=== PATIENT | male | born 2000 | race Two or more races ===

== ENCOUNTER 2024-12-23 14:49 | Emergency (ER) | payer MEDICAID, SELFPAY ==
[2024-12-23 14:50] VITALS: BMI 35.2
[2024-12-23 14:57] VITALS: BP 141/89; PULSE 91; RESP 18; TEMP 36.9; O2SAT 95
--- NOTE | 2024-12-23 15:01 | XR_ITS ---
Examination: Abdomen sonogram, Limited Date and time of exam: December 23, 2024 1516 hours INDICATIONS: Epigastric pain and nausea beginning 2 days ago Technique: Real-time villarreal scale transabdominal sonographic images of the upper abdomen obtained. Findings: Contracted gallbladder, gallbladder wall thickening 0.58 cm Common bile duct enlarged 0.80 cm no definite stones Pancreatic head 2.2 cm Liver 14.9 cm no focal liver lesions Patent IVC Normal hepatopedal portal venous flow IMPRESSION: Recommend repeating the gallbladder portion of the study with fasting Abnormally enlarged common bile duct 0.80 cm, if biliary colic is a clinical consideration recommend MRCP follow-up
--- NOTE | 2024-12-23 15:02 | PD.EDRME ---
Rapid Medical Screening Exam [facility] Arrival date/time: 12/23/24 14:49 24-year-old male with no known medical history presents to the emergency room with a chief complaint of 7 out of 10 epigastric pain that radiates to his left upper quadrant, jaundice, x 3 days. Patient was sent over by his primary care provider I have greeted and performed a focused initial assessment of this patient. A comprehensive ED assessment and evaluation of the patient, analysis of all test results, and completion of the medical decision making process will be conducted by additional ED providers. Chief Complaint: Abdominal Pain Vital signs: Vital Signs Temperature 98.5 F 12/23/24 14:57 Pulse Rate 91 12/23/24 14:57 Respiratory Rate 18 12/23/24 14:57 Blood Pressure 141/89 H 12/23/24 14:57 Pulse Oximetry (%) 95 12/23/24 14:57 Oxygen Delivery Method Room Air 12/23/24 14:57 Vital signs reviewed by provider: Yes
[2024-12-23 15:17] LABS: Basophils % (Auto) 0 % (0-2.5); Eosinophils # (Auto) 0.1 Thou/mm3 (0.0-0.5); Eosinophils % (Auto) 2 % (0-10); Hematocrit 48.7 % (41.0-53.0); Hemoglobin 16.9 g/dL (13.5-16.0); Immature Granulocytes % (Auto) 0 % (0-0); Immature Granulocytes Auto 0.01 Thou/mm3 (0.00-0.00); Lymphocytes % (Auto) 29 % (10-50); Mean Corpuscular HGB Conc 34.7 g/dl (31.0-37.0); Mean Corpuscular Hemoglobin 28.9 pg (25.0-35.0); Mean Corpuscular Volume 83 fL (80-100); Monocytes # (Auto) 0.4 Thou/mm3 (0.0-0.8); Monocytes % (Auto) 6 % (0-12); Neutrophils # (Auto) 4.3 Thou/mm3 (1.8-7.7); Neutrophils % (Auto) 63 % (37-80); Nucleated Red Blood Cell % 0 /100 WBC (0); Platelet Count 327 Thou/mm3 (140-440); Red Blood Count 5.85 Miln/mm3 (4.50-5.90); White Blood Count 6.9 Thou/mm3 (3.8-10.6)
[2024-12-23 15:38] LABS: Alanine Aminotransferase 465 U/L (10-49); Albumin, Serum 4.8 gm/dL (3.5-5.0); Albumin/Globulin Ratio 1.4 (1.2-2.2); Alkaline Phosphatase 264 U/L (46-116); Anion Gap 10 (7-16); Aspartate Amino Transferase 174 U/L (0-34); BUN/Creatinine Ratio 12 Ratio (12-20); Bilirubin,Total 7.7 mg/dL (0.3-1.2); Blood Urea Nitrogen 11 mg/dL (9-23); Calcium 10.2 mg/dL (8.3-10.6); Calcium (Corrected) 10.2 mg/dL (8.5-10.1); Carbon Dioxide 24.2 mMol/L (20.0-31.0); Chloride 104 mMol/L (98-107); Creatinine (Component) 0.9 mg/dL (0.6-1.3); Estimated Creatinine Clearance 150.9 mL/min (>60); Globulin 3.4 gm/dL (2.3-3.5); Glucose 99 mg/dL (74-106); Lipase 32 U/L (12-53); Osmolality,Calculated 275 (275-295); Potassium 3.6 mMol/L (3.4-5.1); Sodium 138 mMol/L (136-145); Total Protein 8.2 gm/dL (5.7-8.2); eGFR > 60 See Note
[2024-12-23 16:29] LABS: Collection Type, Urine Clean Catch
[2024-12-23 16:58] LABS: Amorphous Crystals,Urine Present (Absent); Bacteria,Urine Rare; Bilirubin,Urine 2+ (Negative); Blood,Urine Negative (Negative); Color,Urine Drk-Yellow (Lt Yel-Yel); Glucose, Urine Negative (Negative); Ketones,Urine Negative (Negative); Leukocyte Esterase,Urine Negative (Negative); Nitrite,Urine Negative (Negative); Protein,Urine Trace (Neg - Trace); RBC,Urine 3 /hpf (0-3); Specific Gravity,Urine 1.021 (1.001-1.035); Squamous Epithelial Cell,Urine 1 /hpf (0-5); WBC,Urine 1 /hpf (0-5)
[2024-12-23 17:19] LABS: Clarity,Urine Hazy (Clear/Hazy)
[2024-12-23 19:42] VITALS: BP 124/84; PULSE 80; RESP 18; TEMP 37.1; O2SAT 98
--- NOTE | 2024-12-24 | XR_ITS ---
MRI abdomen, without contrast. MRCP Date and time of exam: December 24, 2024 1010 hours INDICATIONS: Epigastric pain and jaundice beginning 3 days ago, elevated bilirubin on laboratory examination today, enlarged common bile duct on gallbladder sonogram December 23, 2024 Technique: Multiple axial and coronal images of the abdomen have been obtained with the Siemens 1.5T MRI scanner. Images obtained included T1 weighted transverse images, T2-weighted transverse images, T2-weighted transverse images fat-suppressed, T2 weighted haste fat suppressed transverse images, T1 weighted images, in and out of phase images, T2-weighted coronal images, breath hold, T2 weighted haze coronal images as well as T2 weighted coronal thick slab images, MRCP. 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
--- NOTE | 2024-12-24 04:34 | PD.EDABDPN ---
ED Abdominal Pain RME/HPI General Chief Complaint: Abdominal Pain Stated complaint: ABD PAIN, SENT BY [facility] Time seen by provider: 12/23/24 19:56 Arrival date/time: 12/23/24 14:49 Source: patient Mode of arrival: ambulatory Limitations: no limitations RME / HPI RME / HPI narrative: 12/23/24 14:49 24-year-old male with no known medical history presents to the emergency room with a chief complaint of 7 out of 10 epigastric pain that radiates to his left upper quadrant, jaundice, x 3 days. Patient was sent over by his primary care provider. I have greeted and performed a focused initial assessment of this patient. A comprehensive ED assessment and evaluation of the patient, analysis of all test results, and completion of the medical decision making process will be conducted by additional ED providers. Dr. Ruiz?s Main ED Evaluation: I saw this patient at 0435, approximately 14 hours after checking in. 24-year-old male with no known past medical history presents as a walk-in with concerns of bilateral upper quadrant abdominal pain, which began on December 21, 2024. Review of the record, patient was seen at this facility's urgent care in [place] who advised the patient to seek emergent evaluation. Per their note, the onset of pain was preceded by diffuse pruritus, scleral icterus, and dark-colored urine. He self-administered 1 dose of Tylenol with minimal relief. Since symptom onset, he reports persistent abdominal discomfort and worsening nausea. He denies alcohol use, recent viral illness, medication use, or illicit substance exposure. Review of systems is negative for fever, chills, myalgias, vomiting, dizziness, or lethargy. No additional concerns were reported. Related Data Home Medications ?Medication ?Instructions ?Recorded ?Confirmed No Known Home Medications 12/23/24 12/23/24 Allergies Allergy/AdvReac Type Severity Reaction Status Date / Time No Known Allergies Allergy Verified 12/23/24 14:53 Review of Systems Review of Systems Systems Reviewed: All systems reviewed, normal except as documented Past Medical History Social History SMOKING STATUS: Current every day smoker SECOND HAND EXPOSURE: No ED Exam General Limitations: Present no limitations General appearance: Present alert and in no apparent distress Head Head exam: Present atraumatic Eye Eye exam: Present normal appearance, PERRL and EOMI ENT ENT exam: Present normal exam, normal oropharynx and mucous membranes moist Neck Neck exam: Present normal inspection, full ROM and trachea midline Chest Chest inspection: Present normal inspection and symmetric chest wall rise Respiratory Respiratory exam: Present normal lung sounds bilaterally Cardiovascular Cardiovascular exam: Present regular rate, normal rhythm and normal heart sounds Abdominal Exam Abdominal exam: Present soft, tenderness and normal bowel sounds Abdominal tenderness: Present RUQ Extremities Exam Extremities exam: Present normal inspection and full ROM Back Exam Back exam: Present normal inspection and full ROM Neurological Exam Neurological exam: Present alert, oriented X3 and CN II-XII intact Psychiatric Psychiatric exam: Present normal affect and normal mood Skin Skin exam: Present warm, dry, intact and normal color Course Quality Measures none Orders Category Date Time Status MRI Screening NOW Care 12/24/24 01:53 Completed MR MRCP Stat Exams 12/24/24 Completed US gall bladder Stat Exams 12/23/24 15:01 Completed CBC Stat Lab 12/23/24 15:07 Completed CMP [Comprehensive Metabolic Panel] Stat Lab 12/23/24 15:07 Completed Lipase Stat Lab 12/23/24 15:07 Completed UA [Urinalysis] Stat Lab 12/23/24 16:20 Completed Urine Culture Stat Lab 12/23/24 16:20 Received Vital Signs Vital signs: Vital Signs Temperature 98.5 F 12/23/24 14:57 Pulse Rate 91 12/23/24 14:57 Respiratory Rate 18 12/23/24 14:57 Blood Pressure 141/89 H 12/23/24 14:57 Pulse Oximetry (%) 95 12/23/24 14:57 Oxygen Delivery Method Room Air 12/23/24 14:57 Abdominal Pain MDM MDM Narrative MDM Narrative:: 0600 Care signed out to oncoming dayshift provider. Past medical, surgical, social and family history reviewed. Vitals and home medications reviewed. Results and treatment plan discussed. They will assume the care of the patient at this time and will follow the patient, pending MRCP and work-up. Scribe Attestation: Yaneli Atwood, am scribing for and in the presence of Dr. Ruiz. Provider Notation: Although this document has been carefully reviewed, there may still be some phonetic and other typographical errors. These errors are purely grammatical due to imperfections in the software program and should not be construed in any way to compromise the substance of the patient's medical care during this visit. Patient data External records reviewed:: Other (specify) Clinical information provided by:: patient Social determinants that could affect healthcare access:: none Patient has the following chronic illnesses:: na How is presenting disease/condition affected by chronic disease/condition?: no chronic disease Evaluation data The following diagnostics were reviewed and interpreted by me:: lab results and radiology exam(s) Lab and/or radiology exams considered but not ordered:: na Interpretation Summary: Examination: Abdomen sonogram, Limited Date and time of exam: December 23, 2024 1516 hours INDICATIONS: Epigastric pain and nausea beginning 2 days ago Technique: Real-time villarreal scale transabdominal sonographic images of the upper abdomen obtained. Findings: Contracted gallbladder, gallbladder wall thickening 0.58 cm Common bile duct enlarged 0.80 cm no definite stones Pancreatic head 2.2 cm Liver 14.9 cm no focal liver lesions Patent IVC Normal hepatopedal portal venous flow IMPRESSION: Recommend repeating the gallbladder portion of the study with fasting Abnormally enlarged common bile duct 0.80 cm, if biliary colic is a clinical consideration recommend MRCP follow-up Dictated By: Gilmer Ignacio MD Medications / Prescriptions Medications or Prescriptions considered but not ordered:: na Medication administrations:: as above Consultations Consultation(s) initiated? (list below): No Diagnosis Differential diagnosis abdominal pain: abdominal pain, calculus of kidney, diverticulitis, gastroenteritis and pancreatitis Most likely diagnosis given after review of the tests above:: see clinical impression below Admission Indicated Admission indicated?: not indicated Explain why admission is indicated or not indicated:: sign out pending MRCP Admission Request Was there a request for admission?: No Disposition Plan Disposition Plan: other (specify) (sign out pending MRCP) Discharge Plan Plan Patient Disposition: [facility] Acute Care [facility] Facility Pt Being Transferred to: [facility] Service Needed for Transfer: Gastroenterology Prescriptions/Referrals Prescriptions/Med Rec: No Action No Known Home Medications Referrals: Christoph Bhatti MD [Primary Care Provider] - In 1 week Problem List Clinical Impression: Abdominal pain Patient/Caregiver Discharge Instructions Print Language: Danish Stand Alone Forms: Lorie Award Info., Patient Portal Info Letter
--- NOTE | 2024-12-24 06:59 | EDNOTE_ITS ---
Emergency Room Addendum <Misael Salazar MD - Last Filed: 12/24/24 14:06> Addendum Narrative: 0600: Care assumed from Dr. Ruiz, the previous shift emergency physician. Past medical, surgical, social and family history reviewed. Vitals and home medications reviewed. I will assume the care of the patient at this time, pending MRCP. Please refer to the emergency department record for history and examination from initial visit.?The following addendum documentation note is intended to reflect any pending information, findings, or radiology results not included in the patient?s initial chart. Nursing notes reviewed by me. Vital signs reviewed by me. [place] medical records reviewed by me. 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 1040: discussed with GI Dr Estes, recommended transfer for higher level of care. 1050: transfer for ERCP initiated. 1300: accepted to [facility] for transfer. Plan of care discussed with attending Dr. Fung. Misael Salazar MD, PGY 2. <Denise Soriano - Last Filed: 12/24/24 14:05> Addendum Narrative: 0600: Care assumed from Dr. Ruiz, the previous shift emergency physician. Past medical, surgical, social and family history reviewed. Vitals and home medications reviewed. I will assume the care of the patient at this time, pending MRCP. Please refer to the emergency department record for history and examination from initial visit.?The following addendum documentation note is intended to reflect any pending information, findings, or radiology results not included in the patient?s initial chart. Nursing notes reviewed by me. Vital signs reviewed by me. [place] medical records reviewed by me. 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 1040: discussed with GI Dr Estes, recommended transfer for higher level of care. 1050: transfer for ERCP initiated. 1300: accepted to [facility] for transfer. Plan of care discussed with attending Dr. Fung. Misael Salazar MD, PGY 2.
[2024-12-24 08:01] VITALS: BP 128/72; PULSE 77; RESP 18; TEMP 36.7; O2SAT 98
--- NOTE | 2024-12-24 10:50 | PC.CC ---
Addendum entered by Hugh Theodore RN 12/24/24 14:41: 1435 transfer packet is complete with CD inside including all signatures. Transfer packet kept with pt chart, informed community organization aide and number to call for report is on tracker. Addendum entered by Hugh Theodore RN 12/24/24 13:30: 1323 called [facility], spoke to Barbara and informed slate picker time is 1600. Addendum entered by Hugh Theodore RN 12/24/24 13:22: 1315 sent paperwork to [facility] through [employer]. Called [facility], spoke to [facility] and set up the transport. The slate picker time is 1600. Addendum entered by Hugh Theodore RN 12/24/24 13:05: 1302 received call from Barbara at [facility] that pt is accepted for ED to ED transfer. Accepted by Dr. Ramirez. Call report at [phone]. Addendum entered by Hugh Theodore RN 12/24/24 13:03: 1255 called [facility], spoke to Claudia to initiate the transfer. She stated transfer is declined due to capacity. They are only taking stemi, strokes or traumas. Addendum entered by Hugh Theodore RN 12/24/24 11:25: 1115 received call from Barbara at [facility] and I initiated the transfer. Barbara wants to speak with Dr. Byrd. Conference call connected. Original Note: 1058 clinicals sent to [facility] and [facility]. [address] Harmon that pt needs to be transferred for biliary tree obstruction needs ERCP/GI services
[2024-12-24 11:26] VITALS: BP 144/90; PULSE 74; RESP 18; TEMP 36.7; O2SAT 95
[2024-12-24 14:18] VITALS: BP 111/55; PULSE 78; RESP 16; TEMP 36.9; O2SAT 96
--- NOTE | 2024-12-24 16:20 | PC.NURSE ---
Called [facility] and spoke to Debra to whom i gave report
== END 2024-12-24 16:23 | disposition short-term general hospital (02) ==
PROVIDERS: Nurse Practitioner Family; Emergency Provider Emergency Medicine; PCP Family Medicine
DX: K83.1 Obstruction of bile duct (principal)
CPT/HCPCS: 36415; 76705; 80053; 81001; 83690; 85025; 87086; 99285; S8037; 74181

== ENCOUNTER → 2024-12-23 | Outpatient (BNVA) | payer MEDICAID, SELFPAY | END | disposition home or self-care (01) | PROVIDERS: PCP Nurse Practitioner Family; Referring Provider Nurse Practitioner Family; Visit Provider Nurse Practitioner Family | DX: R10.9 Unspecified abdominal pain (principal) | CPT/HCPCS: 81001; 99204 ==

== ENCOUNTER → 2024-12-31 | Outpatient (BNVA) | payer MEDICAID, SELFPAY | END | disposition home or self-care (01) | PROVIDERS: PCP Nurse Practitioner Family; Referring Provider Nurse Practitioner Family; Visit Provider Nurse Practitioner Family | DX: Z76.89 Persons encountering health services in other specified circumstances (principal); R74.01 Elevation of levels of liver transaminase levels; R10.9 Unspecified abdominal pain | CPT/HCPCS: 99213 ==

== ENCOUNTER → 2025-01-08 | Outpatient (BNVA) | payer MEDICAID, SELFPAY | END | disposition home or self-care (01) | PROVIDERS: PCP Nurse Practitioner Family; Referring Provider Nurse Practitioner Family; Visit Provider Nurse Practitioner Family | DX: Z00.01 Encounter for general adult medical examination with abnormal findings (principal); E66.9 Obesity, unspecified; Z68.34 Body mass index [BMI] 34.0-34.9, adult; Z13.220 Encounter for screening for lipoid disorders; R10.9 Unspecified abdominal pain; Z13.1 Encounter for screening for diabetes mellitus; Z71.3 Dietary counseling and surveillance; Z71.85 Encounter for immunization safety counseling; Z01.83 Encounter for blood typing | CPT/HCPCS: 99215 ==

== ENCOUNTER → 2025-01-20 | Outpatient (BNVA) | payer MEDICAID, SELFPAY | END | disposition home or self-care (01) | PROVIDERS: PCP Nurse Practitioner Family; Referring Provider Nurse Practitioner Family; Visit Provider Nurse Practitioner Family | DX: R94.5 Abnormal results of liver function studies (principal); Z71.2 Person consulting for explanation of examination or test findings; E55.9 Vitamin D deficiency, unspecified; E78.5 Hyperlipidemia, unspecified | CPT/HCPCS: 99212; G0463 ==

== ENCOUNTER → 2025-05-03 | Outpatient (BNVA) | payer MEDICAID, SELFPAY | END | disposition home or self-care (01) | PROVIDERS: PCP Nurse Practitioner Family; Referring Provider Nurse Practitioner Family; Visit Provider Nurse Practitioner Family | DX: Z71.2 Person consulting for explanation of examination or test findings (principal); R74.01 Elevation of levels of liver transaminase levels | CPT/HCPCS: 99212; G0463 ==

== ENCOUNTER → 2025-08-17 | Outpatient (BNVA) | payer MEDICAID, SELFPAY | END | disposition home or self-care (01) | PROVIDERS: PCP Nurse Practitioner Family; Referring Provider Nurse Practitioner Family; Visit Provider Nurse Practitioner Family | DX: Z71.2 Person consulting for explanation of examination or test findings (principal); R94.5 Abnormal results of liver function studies | CPT/HCPCS: 99213 ==